=== PATIENT | female | born 1995 | race Hispanic/Latino ===

== ENCOUNTER 2019-12-06 | Emergency (ER) | payer OTHER | END 2019-12-06 23:58 | disposition home or self-care (01) ==

== ENCOUNTER 2019-12-19 08:56 | Emergency (ER) | payer OTHER | END 2019-12-19 09:51 | disposition left against medical advice (07) | LOC: EDH 08:56 | DX: R05 Cough (principal); M54.6 Pain in thoracic spine; Z53.29 Procedure and treatment not carried out because of patient's decision for other reasons | CPT/HCPCS: 99281 ==